=== PATIENT | male | born 1975 ===

== ENCOUNTER 2020-07-04 15:48 | Emergency (ER) | payer BC, SELFPAY ==
--- NOTE | ~2020-07-04 | XR_ITS ---
XR hand LT min 3V DATE: 07/04/2020 16:24 INDICATION: Table saw injury to second through fourth distal phalangeal TECHNIQUE: 3 views COMPARISON: None FINDINGS: No fracture or dislocation, periosteal reaction or bone destruction. No radiopaque soft tis laurie foreign body. Mild soft tissue irregularities of the anterior distal second and third digits cons istent with soft tissue injury. IMPRESSION: No bony abnormality or radiopaque foreign body Reviewed, dictated and finalized at location [facility]. [facility]
[2020-07-04 16:00] VITALS: BP 136/85; PULSE 70; RESP 16; TEMP 36.4; O2SAT 98
[2020-07-04] MEDS: HYDROcodone/acetaminophen (*CRX) 5-325 MG TABLET 1 TAB PO (16:45)
[2020-07-04] MEDS: TETANUS,DIPHTHERIA,AC PERTUSSIS ADULT (0.5 ML) BOOSTRIX IM (16:46)
--- NOTE | 2020-07-04 18:07 | ED.WOUNDLAC ---
HPI - Wound/Laceration General Chief Complaint: Wound/Laceration Stated Complaint: cut fingers on table saw Time Seen by Provider: 07/04/20 16:40 Source: patient Mode of arrival: ambulatory Limitations: no limitations History of Present Illness HPI narrative: Patient is a 44-year-old male who presents with a table saw injury that occurred just prior to arrival injuring multiple digits of the left hand patient notes tetanus not up-to-date notes mild aching pain worse with touch and activity. Patient presents immediately after the accident. Related Data Allergies Allergy/AdvReac Type Severity Reaction Status Date / Time No Known Allergies Allergy Mild Verified 07/04/20 16:16 Review of Systems Review of Systems: All systems reviewed & are unremarkable except as noted in HPI and below PMFSH Family History Family History (Updated 07/07/16 @ 14:58 by DOCTOR UNKNOWN) Mother Hypertension Family history of coronary artery disease Other Family history of cardiovascular disease Social History Social History Smoking status: Never smoker Alcohol intake: never Exam Narrative: Exam Narrative: GENERAL: Well-appearing, well-nourished, and in no acute distress. HEAD: Normocephalic, atraumatic. EYES: PERRLA and EOMI. ENT: Nares clear, no rhinorrhea or epistaxis. Mucous membranes moist. EXTREMITIES: Normal range of motion. No edema. Superficial skin avulsion of the distal phalanx of the left pinky finger and index finger. Irregular laceration of the middle phalanx palmar aspect measuring 2 cm in length. Ring finger with 1 cm laceration. SKIN: Warm, dry, no rash. NEURO: No focal deficits. Alert and oriented x3. Neurovascularly intact. Capillary refill less than 2-second PSYCH: Normal mood and affect. Course Course Emergency Course: Patient in the room at this time aware of case findings treatment plan diagnosis agreeing to follow-up as directed have wounds closed in the emergency department was given tetanus Vital Signs Vital signs: Vital Signs Temperature 97.5 F L 07/04/20 16:00 Pulse Rate 70 07/04/20 16:00 Respiratory Rate 16 07/04/20 16:00 Blood Pressure 136/85 07/04/20 16:00 Pulse Oximetry 98 07/04/20 16:00 Temperature 97.5 F L 07/04/20 16:00 Pulse Rate 70 07/04/20 16:00 Respiratory Rate 16 07/04/20 16:00 Blood Pressure 136/85 07/04/20 16:00 Pulse Oximetry 98 07/04/20 16:00 Procedures Laceration Laceration 1: Date: 07/04/20 Time: 18:11 Site: upper extremity Side (If applicable): left Size (cm): 2 Description: irregular Depth: simple, single layer Local Anesthetic: lidocaine 1% Pre-repair: wound explored, irrigated and irrigated extensively ====== Skin Level ====== Skin layer closed with: nylon Size (cm): 4-0 Number of sutures: 6 ====== Subcutaneous Layer ====== ====== Muscle Layer ====== ====== Tendon Layer ====== Laceration 2: Date: 07/04/20 Time: 18:12 Site: upper extremity Side (If applicable): left Size (cm): 1 Description: linear Depth: simple, single layer Local Anesthetic: lidocaine 1% Pre-repair: wound explored, irrigated and irrigated extensively ====== Skin Level ====== Skin layer closed with: nylon Size (cm): 4-0 Number of sutures: 4 ====== Subcutaneous Layer ====== ====== Muscle Layer ====== ====== Tendon Layer ====== MDM - Wound/Laceration MDM Narrative Medical decision making narrative: Patients injury or pain is consistent with musculoskeletal etiology. No signs of neurological or vascular compromise on exam. Compartments and tisues are soft without signs of compartment syndrome. Pain is felt appropriate for further evaluation on an outpatient basis. Discharge Plan Discharge Clinica
[2020-07-04] MEDS: LIDOCAINE HCL 1% LOCAL INJ 20 ML VIAL (18:32)
[2020-07-04 18:33] VITALS: BP 132/89; PULSE 65; RESP 16; O2SAT 98
== END 2020-07-04 18:37 | disposition home or self-care (01) ==
PROVIDERS: Emergency Provider Emergency Medicine; PCP Family Medicine
DX: S61.213A Laceration without foreign body of left middle finger without damage to nail, initial encounter (principal); S61.215A Laceration without foreign body of left ring finger without damage to nail, initial encounter; Z23 Encounter for immunization; W29.3XXA Contact with powered garden and outdoor hand tools and machinery, initial encounter
CPT/HCPCS: 12002; 73130; 90471; 90715; 99283; A9270